=== PATIENT | female | born 2000 | race Caucasian/White ===

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

== ENCOUNTER 2021-01-06 14:05 | Emergency (ER) | payer SELFPAY ==
[~2021-01-06] VITALS: Ht 167.6 cm; Wt 57.7 kg
[2021-01-06 14:10] VITALS: BP 108/67; Ht 167.6 cm; Wt 57.7 kg
== END 2021-01-06 16:12 | disposition left against medical advice (07) ==
LOC: D.ER 14:05
DX: L02.519 Cutaneous abscess of unspecified hand (principal)

== ENCOUNTER 2021-01-10 16:53 | Emergency (ER) | payer OTHER ==
[~2021-01-10] VITALS: Ht 167.6 cm; Wt 57.7 kg
[2021-01-10 16:55] VITALS: Ht 167.6 cm; Wt 57.7 kg
[2021-01-10] MEDS ORDERED: MUPIROCIN22 GM TOPICAL (18:45)
[2021-01-10] MEDS ORDERED: BACTRIM DS TAB1 EAC1 PO (18:45)
[2021-01-10 18:50] VITALS: BP 112/53
== END 2021-01-10 18:52 | disposition home or self-care (01) ==
LOC: D.ER 16:53
DX: L03.113 Cellulitis of right upper limb (principal)